=== PATIENT | male | born 1965 | race Caucasian/White ===

== ENCOUNTER 2016-06-04 03:06 | Inpatient (IN) ==
[2016-06-04] MEDS ORDERED: DUONEB (A & A) INH ONE (03:18)
[2016-06-04] MEDS ORDERED: SOLU-MEDROL IV ONE (03:18)
[2016-06-04] MEDS ORDERED: SOLU-MEDROL ONE (03:19)
[2016-06-04 03:42] LABS: BE 8.8 mmoll (-3.0-3.0); BLOOD TYPE ARTERIAL; DRAW SITE L RADIAL; METHB 0.7 % (0.0-1.5); O2(CT) 15.2 mL/dL (15.0-23.0); PO2(98.6) 53 mmHg (60-100); SAMPLE BLOOD; SAO2 90.5 % (95.0-100.0); THB 13.1 g/dL (11.5-17.4); pH(98.6) 7.33 (7.35-7.45)
[2016-06-04 03:42] LABS: MANUAL DIFF NEEDED? NO
[2016-06-04 03:44] LABS: BASO% 0.4 % (0.0-0.8); EOS# 0.09 X1000 (0.0-0.7); EOS% 1.1 % (0.0-10.0); HEMATOCRIT 43.7 % (42.0-52.0); HEMOGLOBIN 13.8 g/dL (14.0-18.0); IMM GRAN# 0.02 X1000 (0.0-0.04); IMM GRAN% 0.2 % (0.0-0.5); LYMPH# 1.23 X1000 (1.2-3.4); LYMPH% 14.5 % (20.5-51.1); MCH 30.9 PG (27-31); MCHC 31.6 g/dL (33-37); MONO# 0.98 X1000 (0.11-0.59); MONO% 11.6 % (1.7-9.3); MPV 11.1 FL (7.4-10.4); NEUT% 72.2 % (42.2-75.2); PLT 215 X1000 (130-400); RBC 4.46 XMIL (4.7-6.1)
[2016-06-04 03:45] LABS: PCO2(98.6) 71 mmHg (35-45)
[2016-06-04 03:46] LABS: ALLEN TEST YES; MODALITY CANNULA
--- NOTE | 2016-06-04 03:49 | EKG Report ---
Test Performed on : 06/04/2016 03:21:39 AM Test Reason : CHEST PAIN Blood Pressure : / mmHG Vent. Rate : 087 BPM Atrial Rate : 087 BPM P-R Int : 146 ms QRS Dur : 090 ms QT Int : 364 ms P-R-T Axes : 050 057 057 degrees QTc Int : 438 ms Normal sinus rhythm. Normal ECG When compared with ECG of 03-MAR-2016 18:17, No significant change was found Unconfirmed Result
[2016-06-04 04:00] LABS: INR 0.87 (0.86-1.15); PROTIME 12.2 Seconds (12.1-15.5)
[2016-06-04 04:01] LABS: PTT PL 32.4 Seconds (22.6-43.9)
[2016-06-04 04:03] LABS: AGAP 10; ALBUMIN 4.3 g/dL (3.5-5.0); ALKALINE PHOSPHATASE 102 U/L (32-122); BUN 12 mg/dL (8-22); CALCIUM 8.9 mg/dL (8.8-10.2); CHLORIDE 101 mmol/L (98-107); COSMO 283; GOT 21 U/L (10-34); GPT 17 U/L (10-44); MAGNESIUM 2.2 mg/dL (1.5-2.7); POTASSIUM 4.5 mmol/L (3.5-5.1); SODIUM 142 mmol/L (136-145); TCO2 31 mmol/L (25-35); TOTAL PROTEIN 6.6 g/dL (6.3-8.3)
[2016-06-04 04:08] LABS: CK PROFILE 355 U/L (24-204)
[2016-06-04 04:28] LABS: CK INDEX 3.6 (0.0-2.5); CK-MB 12.69 ng/mL (0.0-5.0)
[2016-06-04] MEDS ORDERED: ZOFRAN IV PRN (04:50)
--- NOTE | 2016-06-04 04:54 | PROVIDER DOCUMENTATION ---
HPI-Respiratory General - General Chief Complaint: Shortness of Breath Stated Complaint: SOB Time Seen by Provider: 06/04/16 03:11 Source: family Unable to obtain history due to:: urgency Allergies/Adverse Reactions: Patient Allergies Allergy/AdvReac Type Severity Reaction Status Date / Time cimetidine [From Tagamet] Allergy Intermediate Unknown Verified 03/03/16 18:04 cimetidine HCl * Allergy Intermediate Unknown Verified 03/03/16 18:04 [From Tagamet] Home Medications: Home Medication List Medication Instructions Recorded Confirmed Last Taken Type No Home Medications 06/04/16 06/04/16 Unknown History - History of Present Illness-Resp Quality of Pain: reports: burning Severity in ED: reports: mild Onset/Duration: reports: abrupt Timing: reports: still present Context: reports: recent URI Exposure: reports: unknown cause Cough Quality/Degree: reports: no cough Episode Frequency: no prior episodes Current Respiratory Medication Therapy: Initiated none Modifying Factors: improves with: nothing Associated Symptoms: reports: denies symptoms Similar Symptoms Previously?: Yes Recently seen or treated by another doctor?: Yes Review of Systems - Adult - REVIEW OF SYSTEMS - ADULT Constitutional: reports: no symptoms reported Eyes: reports: no symptoms reported Ears, Nose, Mouth & Throat: reports: no symptoms reported Cardiovascular: reports: no symptoms reported Respiratory: reports: no symptoms reported Gastrointestinal: reports: no symptoms reported Genitourinary: reports: no symptoms reported Musculoskeletal: reports: no symptoms reported Integumentary: reports: no symptoms reported Neurological: reports: no symptoms reported Psychiatric: reports: no symptoms reported Endocrine: reports: no symptoms reported Hematologic/Lymphatic: reports: no symptoms reported Allergic/Immunologic: reports: no symptoms reported All Other Systems: Reviewed and Negative Past History - Adult - PAST MEDICAL HISTORY-ADULT Review of Records: reports: Old Records Reviewed, Nursing Assessment Review, Medications Reviewed, Social history reviewed & non-contributory. Major Childhood Illnesses: reports: denies history Cardiovascular: reports: denies history Respiratory: reports: COPD, pneumonia Gastrointestinal: reports: denies history Obstetrical/Gynecological: reports: denies history Genitourinary: reports: denies history Musculoskeletal: reports: denies history Neurological: reports: denies history Endocrine/Immune: reports: denies history Other Conditions: reports: denies history - PRIOR SURGERIES/PROCEDURES Surgical/Procedure History: reports: hernia repair - PRIOR HOSPITALIZATIONS Prior Hospitalizations: reports: for other non-related - IMMUNIZATION STATUS Childhood Immunizations: See Nurse Assessment Flu Vaccine: See Nurse Assessment - FAMILY HISTORY Family History: reviewed, not pertinent Physical Exam-General - PHYSICAL EXAM-ADULT Initial Vital Signs Reviewed: Yes - CONSTITUTIONAL General Appearance: appears well - EYES Eyes: PERRL/EOMI - HEAD, EARS, NOSE, MOUTH & THROAT HENMT: normocephalic/atraumatic - NECK Neck: supple - RESPIRATORY Respiratory: normal breath sounds - CARDIOVASCULAR Cardiovascular: normal peripheral pulses - CHEST (BREASTS) Chest/Breast: deferred - GASTROINTESTINAL (ABDOMEN) Abdominal Exam: no organomegaly - LYMPHATIC Lymphatic: no adenopathy - MUSCULOSKELETAL Back Exam: normal inspection Extremity: normal range of motion - SKIN Integumentary: blanching - NEUROLOGIC Neurologic: wad impregnator II-XII nml as tested - PSYCHIATRIC Psych/Mental Status: normal mood/affect Departure - Departure Time of Disposition Order: 04:50 DIAGNOSIS: COPD (chronic obstructive pulmonary disease) with emphysema Disposition: ADMITTED INPATIENT 09 Certified Medical Emergency: Emergent Condition: Stable
[2016-06-04] MEDS: DUONEB (A & A) INH SCH ×5 (08:00→23:05)
[2016-06-04] MEDS: SOLU-MEDROL IV SCH ×3 (08:58→21:33)
--- NOTE | 2016-06-04 09:27 | Diag Imaging Result Document ---
PROCEDURE NAME: CHEST-2 VIEWS - 06/04/2016 PA AND LATERAL RADIOGRAPH OF THE CHEST: COMPARISON: 03/06/2016. FINDINGS: The lungs are grossly clear. There is no definite pleural fluid collection or pneumothorax. Cardiac silhouette and central vasculature are grossly unremarkable. There appear to be several stable healed rib fractures on the left. IMPRESSION: No definite acute pathology.
[2016-06-04 12:14] LABS: CK INDEX 4.6 (0.0-2.5); CK-MB 11.57 ng/mL (0.0-5.0)
[2016-06-04] MEDS ORDERED: NS 250 ML ONE (12:20)
[2016-06-04] MEDS: ROCEPHIN 1 GM/NS 50 ML IV SCH (12:25)
--- NOTE | 2016-06-04 15:23 | HISTORY AND PHYSICAL ---
DATE OF : 1965. DATE OF ADMISSION: 06/04/2016. CHIEF COMPLAINT: Shortness of breath. HISTORY OF PRESENTING ILLNESS: This is a 51-year-old, male, who presented to [facility] emergency room with complaints of shortness of breath that has progressively worsened over the past several days. When he arrived to the emergency room, he had an O2 saturation on room air of 82%. IMAGING STUDIES: Chest x-ray: Showed no definite acute pathology. LABORATORY DATA: CBC: Showed a normal white blood cell count. ABG: Showed a pH of 7.33, a pCO2 of 71, PO2 53, bicarb 31.4. Cardiac enzymes: He had a creatine kinase of 355 with a CK-MB of 12.69 with a negative troponin. ProBNP: 288. Plasma lactate: 1.0. So, he was admitted for further evaluation and treatment. PAST MEDICAL HISTORY: Chronic obstructive pulmonary disorder. PAST SURGICAL HISTORY: Hernia. FAMILY HISTORY: Noncontributory. SOCIAL HISTORY: Currently lives with family. Smokes 1-2 packs of cigarettes a day and has done so for the past 40 years. Denies any alcohol or illicit drug use. ALLERGIES: Cimetidine. HOME MEDICATIONS: He does not take any medications on a routine basis at this time. REVIEW OF SYSTEMS: He denied any fever, chills, blurred vision, dizziness, chest pain. He has had a mild nonproductive cough and increased shortness of breath. Denied any abdominal pain, constipation, diarrhea, burning, or hurting with urination. PHYSICAL EXAMINATION: VITALS: This a 51-year-old, male who had a temperature of 97.1 degrees, pulse 95, respirations 24, blood pressure 141/89, and an O2 saturation on room air of 82% on arrival. Currently, he is saturating 93-95% on 2 L. GENERAL: This is a 51-year-old, morbidly obese, male, lying in the bed. HEENT: Normocephalic and atraumatic. Pupils are equal, round, reactive to light. The extraocular movements are intact. The oropharynx and nares are clear. NECK: Supple. LUNGS: With wheezes throughout entire posterior lung agosto. Equal lung expansion and chest wall movement noted. O2 via nasal cannula currently in use. HEART: With regular rate and rhythm. No murmurs, rubs, or gallops. ABDOMEN: Soft, nontender, nondistended. Bowel sounds are present x4 quadrants. EXTREMITIES: There is no clubbing, cyanosis, or edema. NEUROLOGICAL: The cranial nerves 2-12 are grossly intact. ASSESSMENT: 1. Acute chronic obstructive pulmonary disease exacerbation. 2. Acute respiratory failure. 3. Tobacco abuse. 4. Some mild rhabdomyolysis. PLAN: 1. He was admitted to the Medical Unit at [facility]. Placed on telemetry, O2 per protocol. 2. Blood cultures x2 are pending. 3. We will recheck a cardiac profile to evaluate. 4. If it is improved, we will not start any fluids. If there is any increase, we will start some fluids. 5. He is on DuoNeb every 4 hours routinely, Solu-Medrol 60 mg IV every 6 hours, and we will wean that as he improves, and Rocephin 1 gram IV every 24 hours. 6. We will neral recheck a CBC, BMP in the morning. Dictated by QUINCY Wong for Anatoly Rose MD
[2016-06-04] MEDS: NICODERM PATCH TD SCH (16:16)
[2016-06-05] MEDS ORDERED: TESSALON PO ONE ×2 (02:02→22:40)
[2016-06-05] MEDS: SOLU-MEDROL IV SCH ×4 (03:27→17:19)
[2016-06-05] MEDS: DUONEB (A & A) INH SCH ×5 (03:53→19:34)
[2016-06-05 06:25] LABS: HEMATOCRIT 40.7 % (42.0-52.0); HEMOGLOBIN 12.5 g/dL (14.0-18.0); IMM GRAN# 0.03 X1000 (0.0-0.04); IMM GRAN% 0.3 % (0.0-0.5); LYMPH# 0.51 X1000 (1.2-3.4); LYMPH% 4.5 % (20.5-51.1); MANUAL DIFF NEEDED? YES; MCH 30.3 PG (27-31); MCHC 30.7 g/dL (33-37); MCV 98.8 FL (81-99); MONO# 0.48 X1000 (0.11-0.59); MONO% 4.2 % (1.7-9.3); MPV 11.3 FL (7.4-10.4); PLT 233 X1000 (130-400); RBC 4.12 XMIL (4.7-6.1)
[2016-06-05 06:44] LABS: AGAP 8; BUN 13 mg/dL (8-22); CALCIUM 8.9 mg/dL (8.8-10.2); CHLORIDE 99 mmol/L (98-107); COSMO 286; POTASSIUM 4.3 mmol/L (3.5-5.1); SODIUM 140 mmol/L (136-145); TCO2 32 mmol/L (25-35)
[2016-06-05 08:12] LABS: BANDS 1 % (0-1); LYMPHS 5 % (21-51); MONO 5 % (1-9)
[2016-06-05] MEDS: NICODERM PATCH TD SCH (08:19)
--- NOTE | 2016-06-05 11:03 | PROGRESS NOTE ---
DATE: 06/05/2016 SUBJECTIVE: Patient notes he is feeling a little bit better. He is having a little bit less shortness of breath, cough, congestion. Still lying in bed. Otherwise no acute changes. OBJECTIVE: Vital signs: Temperature 97, pulse 92, respiratory 18, BP 154/65, saturation 96% on 3 L. General: Patient is an obese male who is currently in mild respiratory distress. He is awake and alert. Neck: Supple. CV: Regular rate. Chest: Relatively clear, although greatly decreased bilaterally due to his enlarged body habitus. Abdomen: Soft, nondistended. Extremities: Moves all extremities. Neurologic: No changes. Skin: Warm and dry. No rashes. ASSESSMENT: 1. Chronic obstructive pulmonary disease with moderate exacerbation. 2. Morbid obesity. 3. Respiratory failure. 4. Chronic tobacco abuse. 5. Rhabdomyolysis. PLAN: We will decrease his steroids. Will continue to follow. He has a mild leukocytosis today, likely secondary to steroids as clinically he is overall improved. Blood sugar also was elevated which likely is secondary to steroids. We will recheck this in the a.m. and follow. Hopefully home in the next 1-2 days.
[2016-06-05] MEDS: ROCEPHIN 1 GM/NS 50 ML IV SCH (12:15)
[2016-06-06] MEDS: SOLU-MEDROL IV SCH (00:14)
[2016-06-06] MEDS: DUONEB (A & A) INH SCH ×5 (02:07→15:30)
[2016-06-06 06:15] LABS: HEMATOCRIT 42.2 % (42.0-52.0); MCH 30.6 PG (27-31); MCHC 30.8 g/dL (33-37); MCV 99.3 FL (81-99); MPV 11.3 FL (7.4-10.4); RBC 4.25 XMIL (4.7-6.1)
[2016-06-06 06:50] LABS: AGAP 7; ALBUMIN 3.7 g/dL (3.5-5.0); ALKALINE PHOSPHATASE 87 U/L (32-122); BUN 15 mg/dL (8-22); CALCIUM 8.8 mg/dL (8.8-10.2); CHLORIDE 101 mmol/L (98-107); COSMO 285; GOT 17 U/L (10-34); GPT 17 U/L (10-44); POTASSIUM 4.8 mmol/L (3.5-5.1); SODIUM 141 mmol/L (136-145); TCO2 33 mmol/L (25-35); TOTAL BILIRUBIN < 0.15 mg/dL (0.20-1.00); TOTAL PROTEIN 6.4 g/dL (6.3-8.3)
[2016-06-06] MEDS: NICODERM PATCH TD SCH (10:05)
[2016-06-06] MEDS ORDERED: SOLU-MEDROL IV SCH (12:00)
[2016-06-06] MEDS: ROCEPHIN 1 GM/NS 50 ML IV SCH (13:22)
[2016-06-06 16:23] VITALS: BP 141/83
--- NOTE | 2016-06-07 21:20 | DISCHARGE SUMMARY ---
ADMISSION DATE: 06/04/2016 DISCHARGE DATE: 06/06/2016 DIAGNOSES: 1. Acute on chronic obstructive pulmonary disease exacerbation. 2. Acute respiratory failure. Resolved. 3. Mild rhabdomyolysis. Resolved. 4. Morbid obesity. 5. Chronic tobacco abuse. DIAGNOSTICS: 1. 06/04/2016 chest x-ray with no definite acute pathology. Lungs are grossly clear. No pleural fluid collection or pneumothorax. Cardiac silhouette and central vascular are grossly unremarkable. There appear to be several stable healed rib fractures on the left. 2. Microbiology: Blood cultures revealed no growth after 48 hours. HOSPITAL COURSE: Mr. Mcclendon presented to the emergency room having an acute COPD exacerbation with room air saturations of 82%. He was given supplemental oxygen, DuoNeb q.4 hours with steroids to taper, antibiotic coverage of Rocephin. Blood cultures revealed no growth. CPK did decrease to 74. Troponins were negative throughout the hospitalization. DISCHARGE PHYSICAL EXAMINATION: Cardiovascular: Regular rate and rhythm. S1, S2 appreciated. Pulmonary: Breath sounds were diminished throughout with no increased work of breathing noted. Chest did rise and fall symmetrically with respiration. Gastrointestinal: Abdomen is soft, nontender, nondistended with bowel sounds in all 4 quadrants. Extremities: No clubbing, cyanosis, or edema. Calves are nontender. Pulses are palpable x4. DISCHARGE MEDICATIONS: 1. Omnicef 300 mg p.o. b.i.d. for 5 days. 2. Medrol Dosepak 4 mg as directed. 3. DuoNeb q.4 hours p.r.n. wheezing. 4. He was given a prescription for nebulizer supplies as well as a month's worth of DuoNeb. FOLLOWUP: He needs to follow up with his primary care physician in 1-2 weeks. DISCHARGE VITAL SIGNS: Blood pressure is 141/83 with a heart rate of 89, respirations 16, temperature 98 degrees, room air saturation was 95%, walking room air saturation was 93-94%. DISCHARGE ACTIVITY: As tolerated. He is being discharged home in stable condition with family members. DISCHARGE TIME: Greater than 30 minutes. Dictated by QUINCY Tran for Anatoly Rose MD
== END 2016-06-06 17:20 | disposition home or self-care (01) | DRG 190 ==
LOC: P.ED 03:06 → P.MEDSURG 03:07 → UNDOADMIN 04:54
PROVIDERS: ATTEND Family Medicine
DX: J44.1 Chronic obstructive pulmonary disease with (acute) exacerbation (principal); J96.00 Acute respiratory failure, unspecified whether with hypoxia or hypercapnia; M62.82 Rhabdomyolysis; F17.210 Nicotine dependence, cigarettes, uncomplicated; E66.01 Morbid (severe) obesity due to excess calories
CPT/HCPCS: 71020; 80048; 80053; 82550; 82553; 82805; 83605; 83735; 83880; 84484; 85025; 85027; 85610; 85730; 87040; 93005; 94640; 94761; 96374; J0696; J2920; J2930; J7050

== ENCOUNTER 2018-12-16 12:43 | Inpatient (IN) ==
--- NOTE | 2018-12-16 16:31 | HISTORY AND PHYSICAL ---
CHIEF COMPLAINT: Shortness of breath, cough, and wheezing. HISTORY OF PRESENT ILLNESS: He is a 53-year-old white male, pickwickian syndrome, tobacco abuse, with known history of restrictive and obstructive lung disease on inhalers, treating in our clinic for the last 1 week, failed to improve. Chest x-ray, a lot of scarring in the right lower lobe with possible infiltrate. Pulse oximetry 88%. The patient was seen in our clinic and subsequently admitted directly for acute COPD exacerbation, possible pneumonia. He denies to have any chest pain. PAST MEDICAL HISTORY: COPD, morbid obesity, fatty liver, glucose intolerance, and atypical chest pain. Stress test was negative a year ago at [facility]. PAST SURGICAL HISTORY: Incisional hernia repair by Dr. Hsu. MEDICATIONS: Prior to the admission, albuterol/Atrovent nebulizers, Advair, ProAir. ALLERGIES: Cimetidine. SOCIAL HISTORY: Single. 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 Smoking half a pack a day. Drinking beer 5 times a week. One kid. FAMILY HISTORY: Adopted, not known. VACCINATIONS: He had a pneumococcal vaccine 01/18/2018 and pneumococcal 23 was given last at 12/23/2015. REVIEW OF SYSTEMS: HEENT: No headache. No visual problem. No earache. No sore throat. Neck: No neck pain. No goiter. No lymphadenopathy. Cardiopulmonary: No chest pain, shortness of breath, cough, and wheezing. GI: No nausea, vomiting, abdominal pain. : No history of hesitancy, frequency, dysuria. No swelling of feet. No joint pain. Neurologic: No focal symptoms or weakness. PHYSICAL EXAMINATION: VITAL SIGNS: Low-grade fever. Vitals are stable. He is 92% on room air. He is 5 feet 6 inches, 317 pounds. HEENT: Atraumatic, normocephalic. Pupils equal, react to light. TMs are normal. Nose and throat within normal limits. NECK: Supple. No lymphadenopathy. No goiter. CHEST: Bilateral expiratory wheezing. HEART: Sounds are regular. ABDOMEN: Belly is soft, nontender. Good bowel sounds. No signs of peritonitis. RECTAL: Deferred. EXTREMITIES: No peripheral edema, cyanosis. NEUROLOGIC: No obvious neurological deficits. DIAGNOSTIC STUDIES: Chest x-ray at [facility], right lower lobe infiltrate with scarring. Rest of the labs are pending. ASSESSMENT AND PLAN: A 53-year-old white male admitted to the hospital after being evaluated outpatient with chronic obstructive pulmonary disease exacerbation with morbid obesity, failure of outpatient treatment. Admitted to the hospital for: 1. Acute chronic obstructive pulmonary disease exacerbation, possible right lower lobe pneumonia. Plan is oxygen, IV Levaquin, IV Zosyn, bronchodilators with Breo, nebulizer treatment, DVT and GI prophylaxis as per order sheet. Symptomatic treatment for cough and nicotine abuse, on patches. Follow up on the pending labs. Vaccinations are up-to-date. 2. Atypical chest pain. Stress test was negative last year, 2018. Follow up. cc: Ahmet Valles MD
[2018-12-16 16:59] LABS: ALLEN TEST YES; BE 6.7 mmoll (-3.0-3.0); BLOOD TYPE ARTERIAL; HCO3-(ACT) 29.7 mmoll (20.0-26.0); METHB 0.4 % (0.0-1.5); O2(CT) 16.4 mL/dL (15.0-23.0); PO2(98.6) 54 mmHg (60-100); SAMPLE BLOOD; SAO2 89.8 % (95.0-100.0); THB 14.1 g/dL (11.5-17.4); pH(98.6) 7.38 (7.35-7.45)
[2018-12-16 17:01] LABS: MODALITY ROOM AIR
[2018-12-16 17:05] LABS: O2HB 82.8 % (95.0-99.0); PCO2(98.6) 57 mmHg (35-45)
[2018-12-16] MEDS: ZOSYN 3.375 GM in NS 50 ML IV SCH ×2 (17:25→22:02)
[2018-12-16] MEDS: LEVAQUIN 500 MG/D5W 500 MG/100 ML IVPB IV SCH (17:25)
[2018-12-16] MEDS: SOLU-MEDROL IV SCH ×2 (17:30→22:51)
--- NOTE | 2018-12-16 17:35 | EKG Report ---
Test Performed on : 12/16/2018 4:42:12 PM Test Reason : chest pain Blood Pressure : / mmHG Vent. Rate : 089 BPM Atrial Rate : 089 BPM P-R Int : 158 ms QRS Dur : 096 ms QT Int : 354 ms P-R-T Axes : 055 054 055 degrees QTc Int : 430 ms Normal sinus rhythm. with sinus arrhythmia. Normal ECG When compared with ECG of 04-JUN-2016 03:21, No significant change was found Confirmed by Fatou LI, Amanuel Stuart ([id number]) on 12/17/2018 8:54:47 AM
[2018-12-16] MEDS: LOVENOX SUBQ SCH (22:02)
[2018-12-16] MEDS: NICODERM PATCH TD SCH (22:51)
[2018-12-16] MEDS: HUMALOG SUBQ SCH (23:10)
[2018-12-16] MEDS: NEXIUM IV SCH (23:12)
[2018-12-17] MEDS: ZOSYN 3.375 GM in NS 50 ML IV SCH ×4 (03:23→23:26)
[2018-12-17] MEDS: SOLU-MEDROL IV SCH ×4 (06:17→23:26)
[2018-12-17] MEDS: HUMALOG SUBQ SCH ×5 (06:18→21:52)
[2018-12-17 07:23] LABS: HEMATOCRIT 42.5 % (42.0-52.0); HEMOGLOBIN 13.8 g/dL (14.0-18.0); IMM GRAN# 0.03 X1000 (0.0-0.04); IMM GRAN% 0.3 % (0.0-0.5); LYMPH# 0.45 X1000 (1.2-3.4); LYMPH% 5.1 % (20.5-51.1); MCH 31.7 PG (27-31); MCHC 32.5 g/dL (33-37); MCV 97.7 FL (81-99); MONO# 0.19 X1000 (0.11-0.59); MONO% 2.1 % (1.7-9.3); MPV 11.1 FL (7.4-10.4); NEUT# 8.24 X1000 (1.4-6.5); NEUT% 92.5 % (42.2-75.2); PLT 217 X1000 (130-400); RBC 4.35 XMIL (4.7-6.1); RDW 14.3 % (11.5-14.5); WBC 8.91 X1000 (4.8-10.8)
[2018-12-17 07:27] LABS: AGAP 11; BUN 21 mg/dL (8-22); CHLORIDE 102 mmol/L (98-107); CK PROFILE 156 U/L (24-204); COSMO 286; CREATININE 0.8 mg/dL (0.7-1.2); ESTIMATED GFR > 60; GLUCOSE 160 mg/dL (70-104); POTASSIUM 4.8 mmol/L (3.5-5.1); SODIUM 140 mmol/L (136-145); TCO2 27 mmol/L (25-35)
[2018-12-17 07:41] LABS: HEMOGLOBIN A1C 5.6 % (4.8-6.0)
[2018-12-17 07:55] LABS: BANDS 4 % (0-1); LYMPHS 10 % (21-51); MONO 2 % (1-9); SEGS 84 % (42-75)
--- NOTE | 2018-12-17 08:08 | Diag Imaging Result Doc PS360 ---
EXAM: CHEST-2 VIEWS HISTORY: hypoxia TECHNIQUE: Chest two views COMPARISON: 01/14/2018 FINDINGS: The lungs are well expanded. Right basilar scarring. The heart is not enlarged. The vessels are not distended. There are no infiltrates. Tiny pleural effusions. Old rib fractures. IMPRESSION: Tiny effusions. Electronically signed by David Mercado 12/17/2018 8:06 AM
[2018-12-17] MEDS: BREO ELLIPTA 200/25 MCG INH INH SCH (08:26)
[2018-12-17] MEDS ORDERED: NICODERM PATCH TD SCH (09:00)
[2018-12-17] MEDS: NICODERM PATCH TD SCH (09:56)
[2018-12-17] MEDS: DUONEB (A & A) INH PRN ×3 (11:45→22:10)
[2018-12-17] MEDS: TYLENOL PO PRN ×2 (12:09→18:05)
--- NOTE | 2018-12-17 19:25 | PROGRESS NOTE ---
DATE: 12/17/2018 SUBJECTIVE: The patient is a little better. No chest pain or shortness of breath. EKG was done and normal sinus, nothing acute. Chest x-ray: Right basilar scarring. No chest pain. Continues to smoke. PHYSICAL EXAMINATION: Vital Signs: Temperature is 97 degrees. Pulse 92. Vitals are stable. 2 L nasal cannula, 95%. General: Morbidly obese. HEENT: Within normal limits. Lungs: Wheezing bilaterally. Heart: Distant heart sounds. Abdomen: Belly is soft, nontender. Neurologic: No neurological deficits. LABS: Sodium 140, potassium 4.8, A1c 5.6, glucose 210. CK and troponin were normal. ProBNP was normal. ASSESSMENT: 1. Pickwickian syndrome. 2. Acute asthma, chronic obstructive pulmonary disease exacerbation. 3. Glucose intolerance. PLAN: 1. Continue on bronchodilators, intravenous steroids, intravenous antibiotics. 2. Nicotine abuse. Quit smoking. 3. Deep venous thrombosis and gastrointestinal prophylaxis with Lovenox and Nexium. 4. Continue present treatment. LEVEL OF DOCUMENTATION: 25 minutes. cc: Ahmet Valles MD
[2018-12-17] MEDS: LEVAQUIN 500 MG/D5W 500 MG/100 ML IVPB IV SCH (21:47)
[2018-12-17] MEDS: NEXIUM IV SCH (21:48)
[2018-12-17] MEDS: SODIUM CHLORIDE 0.9% INJ SCH (21:48)
[2018-12-17] MEDS: LOVENOX SUBQ SCH (21:48)
[2018-12-18] MEDS: TYLENOL PO PRN (00:07)
[2018-12-18] MEDS: DUONEB (A & A) INH PRN ×3 (03:25→21:30)
[2018-12-18] MEDS: ZOSYN 3.375 GM in NS 50 ML IV SCH ×4 (06:34→22:28)
[2018-12-18] MEDS: HUMALOG SUBQ SCH ×3 (06:37→17:03)
[2018-12-18] MEDS: SOLU-MEDROL IV SCH ×3 (08:28→23:50)
[2018-12-18] MEDS: NICODERM PATCH TD SCH (08:28)
[2018-12-18] MEDS: BREO ELLIPTA 200/25 MCG INH INH SCH (09:01)
[2018-12-18] MEDS: SODIUM CHLORIDE 0.9% INJ SCH (21:31)
[2018-12-18] MEDS: LOVENOX SUBQ SCH (21:31)
[2018-12-18] MEDS: NEXIUM IV SCH (21:31)
[2018-12-18] MEDS: LEVAQUIN 500 MG/D5W 500 MG/100 ML IVPB IV SCH (21:32)
[2018-12-18] MEDS: ROBITUSSIN-DM PO PRN (22:55)
--- NOTE | 2018-12-19 00:22 | PROGRESS NOTE ---
DATE: 12/18/2018 SUBJECTIVE: The patient is slowly getting better. No chest pain. Decreased wheezing. REVIEW OF SYSTEMS: None reported. OBJECTIVE: Vital Signs: Temperature is 98 degrees, pulse is 86, blood pressure is 160/86. HEENT: Within normal limits. Morbidly obese. Neck: Supple. Chest: Bilateral wheezing decreased. Heart: Sounds are regular. Abdomen: Soft and nontender. Good bowel sounds. No masses palpable. Neurologic: No neurological deficits. LABORATORY DATA: Cardiac enzymes were negative. EKG normal sinus arrhythmia. ASSESSMENT AND PLAN: 1. Acute chronic obstructive pulmonary disease exacerbation, asthmatic bronchitis. Continue present IV antibiotic steroids. 2. Nicotine abuse. Nicotrol patch. 3. DVT/GI prophylaxis. Quit smoking. 4. Previous cardiac workup was negative in 2017, and we will reassess oxygenation status and pulmonary function test as an outpatient. 5. Initiate a vaccination protocol flu and pneumonia prior to the discharge. LEVEL OF DOCUMENTATION: 25 minutes. cc: Ahmet Valles MD
[2018-12-19] MEDS: HUMALOG SUBQ SCH ×4 (01:06→18:18)
[2018-12-19] MEDS: DUONEB (A & A) INH PRN ×2 (03:34→17:07)
[2018-12-19] MEDS: ZOSYN 3.375 GM in NS 50 ML IV SCH ×5 (04:08→21:42)
[2018-12-19] MEDS: ROBITUSSIN-DM PO PRN ×2 (04:09→20:26)
[2018-12-19] MEDS: NICODERM PATCH TD SCH (08:50)
[2018-12-19] MEDS: SOLU-MEDROL IV SCH ×3 (08:52→23:25)
[2018-12-19 10:38] LABS: ALLEN TEST YES; BE 3.7 mmoll (-3.0-3.0); BLOOD TYPE ARTERIAL; HCO3-(ACT) 27.7 mmoll (20.0-26.0); METHB 1.2 % (0.0-1.5); O2(CT) 18.7 mL/dL (15.0-23.0); O2HB 92.3 % (95.0-99.0); PO2(98.6) 66 mmHg (60-100); SAMPLE BLOOD; SAO2 94.5 % (95.0-100.0); THB 14.4 g/dL (11.5-17.4); pH(98.6) 7.35 (7.35-7.45)
[2018-12-19 10:41] LABS: MODALITY ROOM AIR; PCO2(98.6) 56 mmHg (35-45)
[2018-12-19] MEDS: TYLENOL PO PRN (11:42)
[2018-12-19] MEDS: BREO ELLIPTA 200/25 MCG INH INH SCH (17:07)
[2018-12-19] MEDS: NEXIUM IV SCH (20:26)
[2018-12-19] MEDS: LOVENOX SUBQ SCH (20:26)
[2018-12-19] MEDS: SODIUM CHLORIDE 0.9% INJ SCH (20:26)
[2018-12-19] MEDS: LEVAQUIN 500 MG/D5W 500 MG/100 ML IVPB IV SCH (20:26)
[2018-12-19] MEDS ORDERED: FLU VACCINE IM ONE (21:32)
[2018-12-19] MEDS ORDERED: PREVNAR 13 IM ONE (21:32)
--- NOTE | 2018-12-20 03:48 | PROGRESS NOTE ---
DATE: 12/19/2018 SUBJECTIVE: The patient is doing better, still some wheezing. OBJECTIVE: Vital Signs: Temperature is 97, blood pressure is slightly running high, O2 saturation is 95% on room air. HEENT: Within normal limits. Neck: Supple. Chest: Clear. Decreased wheezing. Heart: Sounds are regular. Abdomen: Soft, nontender. Neurologic: No obvious deficits. LABORATORY INVESTIGATIONS: ABG: PH is 7.35, pCO2 is 56, PO2 is 66 on room air. ASSESSMENT: 1. Pickwickian syndrome. 2. Acute asthma exacerbation with COPD, tobacco abuse. 3. History of kidney stones. PLAN: Continue present treatment. Quit smoking. Evaluated home oxygen, he does not qualify. We will give the pneumococcal vaccine and the flu vaccine prior to the discharge, and if he is stable we will discharge in the morning. LEVEL OF DOCUMENTATION: 25 minutes. cc: Ahmet Valles MD MTDD
[2018-12-20] MEDS: ZOSYN 3.375 GM in NS 50 ML IV SCH ×3 (04:15→09:53)
[2018-12-20] MEDS: HUMALOG SUBQ SCH ×2 (05:40→07:09)
[2018-12-20 07:39] VITALS: BP 165/96
[2018-12-20] MEDS: SOLU-MEDROL IV SCH (08:47)
[2018-12-20] MEDS: NICODERM PATCH TD SCH (08:49)
== END 2018-12-20 11:14 | disposition home or self-care (01) | DRG 191 ==
LOC: DIRADM 12:43 → 4N 13:47
PROVIDERS: ADMIT Internal Medicine; ATTEND Internal Medicine